=== PATIENT | male | born 1970 | race Caucasian/White ===

== ENCOUNTER 2016-12-09 09:45 | Emergency (ER) | payer OTHER ==
[~2016-12-09] VITALS: Ht 182.9 cm; Wt 106.0 kg
[~2016-12-09 09:45] MED LIST: HYDR-4079 PO; MULT-506 PO; SYMIN160 INH
[2016-12-09 09:49] VITALS: Ht 182.9 cm; Wt 106.0 kg
[2016-12-09] MEDS ORDERED: HYDROCODONE/ACETAMOPHEN 5/325MG TAB PO STA (10:13)
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
--- NOTE | 2016-12-09 12:34 | DIAGNOSTIC IMAGING REPORT ---
RIGHT RIBS UNILATERAL WITH PA CHEST CLINICAL HISTORY: R rib pain Right COMPARISON STUDY: Chest CT 07/18/2011. FINDINGS: Old, healed right first and second rib fractures. No acute rib fractures. No pneumothorax. No pleural effusions. The heart is normal in size. IMPRESSION: No acute rib fractures. No pneumothorax. Electronically signed by: Noah Murillo M.D. 12/09/2016 12:33 PM Dictated Date/Time: 12/09/2016 12:30 PM
[2016-12-09 12:44] VITALS: TEMP 36.7
[2016-12-09 13:40] VITALS: BP 142/91; PULSE 53; O2SAT 99
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
== END 2016-12-09 13:40 | disposition home or self-care (01) ==
LOC: C.EDB 09:47
DX: S16.1XXA Strain of muscle, fascia and tendon at neck level, initial encounter (principal); G44.209 Tension-type headache, unspecified, not intractable; T14.8 Other injury of unspecified body region; V43.52XA Car driver injured in collision with other type car in traffic accident, initial encounter; Y92.410 Unspecified street and highway as the place of occurrence of the external cause; Z87.891 Personal history of nicotine dependence; Z79.899 Other long term (current) drug therapy

== ENCOUNTER 2024-11-20 20:55 | Inpatient (IN) ==
[2024-11-20] MEDS ORDERED: MoRPHine SULFATE 4 MG/ML 1 ML CARP\\VIAL IV PRN (21:28)
[2024-11-20 21:36] LABS: Appearance Urine Clear (Clear); Bacteria Urine Automated None Seen (None Seen); Cast Urine Automated 0-2 /lpf (0-2); Epithelial Cell Urine Auto 0-2 /hpf (0-2); Glucose Urine UA Negative (Negative); Hematocrit (blood only) 44.2 % (42.0-52.0); Hemoglobin 16.0 g/dl (14.0-18.0); Immature Granulocytes # (auto) 0.05 K/uL (0.01-0.20); Immature Granulocytes % (auto) 0.3 %; Mean Corpuscular Hemoglobin 32.9 pg (25.0-34.0); Mean Corpuscular Volume 90.9 fL (80.0-100.0); Platelet Count 167 K/uL (130-400); RDW Standard Deviation 41.1 fL (36.4-46.3); Red Blood Count 4.86 M/uL (4.70-6.10); WBC Urine Automated 0-5 /hpf (0-5); White Blood Count 16.73 K/ul (4.8-10.8)
[2024-11-20] MEDS: KETOROLAC 30 MG/ML VIAL IV STA (21:40)
[2024-11-20] MEDS: SODIUM CHLORIDE 0.9% 1,000 ML IV ONE (21:40)
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
[2024-11-20] MEDS: ONDANSETRON INJ 2 MG/ML 2 ML VIAL IV STA (21:42)
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
[2024-11-20] MEDS ORDERED: LORazepam 0.5 MG TAB PO PRN (21:48)
[2024-11-20] MEDS ORDERED: PROMETHAZINE 12.5 MG/50.5 ML BAG IV PRN (21:48)
[2024-11-20 21:52] LABS: Alanine Aminotransferase 24.0 U/L (7-52); Albumin Globulin Ratio 1.6 (0.9-2); Alkaline Phosphatase 57.0 U/L (34-104); Anion Gap 9.0 (3-11); Bilirubin,Total 0.7 mg/dl (0.2-1.0); Blood Urea Nitrogen 21.0 mg/dl (6-23); Calcium 9.5 mg/dl (8.6-10.3); Carbon Dioxide 24.0 mmol/L (21-32); Chloride 107.0 mmol/L (98-107); Creatinine Clr Calc Pharmacy 84.0 ml/min; Globulin 2.7 gm/dl (2.5-4.0); Glucose 115.0 mg/dl (70-99(Fasting)); Potassium 4.1 mmol/L (3.5-5.1); Sodium 140.0 mmol/L (136-145); Total Protein 7.1 gm/dl (6.0-8.3)
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
[2024-11-20] MEDS: MoRPHine SULFATE 4 MG/ML 1 ML CARP\\VIAL IV PRN (22:29)
[2024-11-20] MEDS: LACTATED RINGER'S 1,000 ML IV ONE (23:13)
[2024-11-20] MEDS ORDERED: POLYETHYLENE (MIRALAX) 17 GM PACK PO PRN (23:17)
[2024-11-20] MEDS ORDERED: RIZATRIPTAN BENZOATE 10 MG TAB PO PRN (23:48)
[2024-11-20] MEDS: DOCUSATE SODIUM/SENNA 50/8.6MG TAB PO SCH (23:56)
[2024-11-21 04:44] LABS: Hematocrit (blood only) 40.2 % (42.0-52.0); Hemoglobin 13.8 g/dl (14.0-18.0); Immature Granulocytes # (auto) 0.05 K/uL (0.01-0.20); Immature Granulocytes % (auto) 0.4 %; Mean Corpuscular Hemoglobin 32.0 pg (25.0-34.0); Mean Corpuscular Volume 93.3 fL (80.0-100.0); Platelet Count 137 K/uL (130-400); RDW Standard Deviation 43.3 fL (36.4-46.3); Red Blood Count 4.31 M/uL (4.70-6.10); White Blood Count 12.89 K/ul (4.8-10.8)
[2024-11-21 04:59] LABS: Anion Gap 4.0 (3-11); Blood Urea Nitrogen 25.0 mg/dl (6-23); Calcium 8.8 mg/dl (8.6-10.3); Carbon Dioxide 27.0 mmol/L (21-32); Chloride 109.0 mmol/L (98-107); Creatinine Clr Calc Pharmacy 66.5 ml/min; Glucose 109.0 mg/dl (70-99(Fasting)); Potassium 4.4 mmol/L (3.5-5.1); Sodium 140.0 mmol/L (136-145)
[2024-11-21] MEDS: ACETAMINOPHEN 325 MG TAB PO PRN (05:38)
[2024-11-21] MEDS ORDERED: HYDROmorphone INJ 0.5 MG/0.5 ML SYR IV PRN (05:42)
[2024-11-21] MEDS: HYDROmorphone INJ 0.5 MG/0.5 ML SYR IV STA (05:43)
[2024-11-21 07:39] LABS: Hemoglobin A1C 5.8 % (4.5-5.6)
[2024-11-21] MEDS ORDERED: LACTATED RINGER'S 1,000 ML IV SCH (08:00)
[2024-11-21] MEDS: FLUTICASONE/VILANTEROL 200/25MCG 14 PUFFS/INHALER INH SCH (08:17)
[2024-11-21] MEDS: LORATADINE 10 MG TAB PO SCH (08:17)
[2024-11-21] MEDS: TAMSULOSIN HCL 0.4 MG CAP PO SCH (08:18)
[2024-11-21] MEDS: MULTIVITAMIN TAB PO SCH (08:18)
--- NOTE | 2024-11-21 09:14 | Urology Progress Note ---
Date of Service November 21, 2024 Assessment & Plan (1) Calculus of right ureter: Plan: Follow-up of right ureteral stone Patient afebrile, vital signs stable Labs reviewedcreatinine 1.64 today (previously 1.3), WBC 12.89 Urinalysis was not suspicious for infection Subjectively continues to have pain Discussed options for stone management including cystoscopy and right ureteral stent placement given ongoing pain versus continued trial of passage with medical expulsive therapy and pain management After discussion, he elects right ureteral stent placement Ureteral stents discussed in detail Proceed to OR for cystoscopy, retrograde pyelogram and right ureteral stent placement Keep n.p.o. for procedure Risks and benefits of procedure to be reviewed with patient by Dr. Kramer Will treat with preoperative antibiotic Continue supportive care and medical management per hospital medicine service Admission and Anticipated Discharge Date Admission Date: November 20, 2024 Supervising Physician Co-Signing Physician Notes Discussed patient with JUJU. Agree with plan. Plan to go to OR for cystoscopy and right stent placement Subjective Patient seen and examined in emergency department. No acute issues overnight. Continues to have right flank pain. Denies stone passage. Voiding spontaneously, no dysuria or hematuria.. No fever or chills. He is NPO. Review of Systems Constitutional: as per Subjective / HPI Genitourinary: + as per Subjective / HPI Physical Exam Constitutional: well developed and well nourished; no acute distress Respiratory: normal respiratory effort; no respiratory distress and no labored breathing Gastrointestinal (Abdomen): Inspection/Auscultation: abdomen normal to inspection Musculoskeletal: Head/Neck/Chest: normocephalic Neurologic: moves all extremities and awake Psychiatric: Orientation: alert and oriented x 3 Results & Data Vital Signs (Past 12 Hours) Vital Signs Pulse Pulse Resp BP Pulse Ox O2 Del Method 11/21/24 08:15 63 21 122/83 96 Room Air 11/20/24 23:11 73 16 136/89 95 Room Air 11/20/24 22:57 73 11/20/24 22:30 88 14 134/87 96 Room Air 11/20/24 21:57 82 16 11/20/24 21:50 85 PG Care Time/CCT Total # of Minutes Spent Total Time Spent with Patient: Total time spent is greater than 50% in coordination of care (as documented) at patient's floor/unit and/or counseling patient: Coding Level of Care Code 28399 SUB INP/OBS CARE MIN Diagnoses Calculus of right ureter N20.1
[2024-11-21] MEDS: LACTATED RINGER'S 1,000 ML IV SCH (10:49)
[2024-11-21] MEDS ORDERED: PROPOFOL IV EMULSION 10 MG/ML 20 ML VIAL IV ONE ×2 (10:53→11:38)
[2024-11-21] MEDS ORDERED: DEXAMETHASONE SOD INJ 4 MG/ML VIAL ONE ×2 (10:53→10:57)
[2024-11-21] MEDS ORDERED: LIDOCAINE 2% 2 ML VIAL/AMP(20MG/ML) INFIL ONE (10:53)
[2024-11-21] MEDS ORDERED: ONDANSETRON INJ 2 MG/ML 2 ML VIAL ONE (10:53)
[2024-11-21] MEDS ORDERED: MIDAZOLAM HCL 1 MG/ML 2ML VIAL ONE (10:53)
[2024-11-21] MEDS ORDERED: ONDANSETRON INJ 2 MG/ML 2 ML VIAL IV PRN (11:09)
[2024-11-21] MEDS ORDERED: ATROPINE SULFATE 0.1 MG/ML 10ML SYR IV PRN (11:09)
[2024-11-21] MEDS ORDERED: HYDROmorphone INJ 1 MG/ML SYRINGE IV PRN (11:09)
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
--- NOTE | 2024-11-21 11:43 | Operative Report ---
PG Post Operative Report Pre & Post Diagnosis Right ureteral calculus Operation Date: 11/21/24 10:15 <No data on this case meets the specified criteria> Right ureteral calculus I identified the patient and participated in the time-out.: Yes Procedure Cystoscopy, right retrograde With radiograph interpretation, right ureteral stent placement Operation Date: 11/21/24 10:15 <No data on this case meets the specified criteria> Surgeon Talha Kramer MD Social Welfare Clerk None Estimated Blood Loss 0 Findings See Below Mild to moderate right hydronephrosis. Stent in appropriate position Specimens None Drains 6 Swazi by 26 cm right ureteral stent Anesthesia Type MAC Complications none Indications 54-year-old male with a right proximal obstructing ureteral calculus Description of Procedure After informed consent was obtained, the patient was transported operative suite. MAC anesthesia was induced. The patient was placed in dorsolithotomy position prepped and draped in a sterile fashion. They received preoperative Ancef for antibiotic prophylaxis. An appropriate surgical timeout was performed. A 22 Swazi rigid scope was inserted per urethra into the bladder. Espinoza cystoscopy revealed no stones or lesions. I turned my attention the right ureteral orifice and intubated this with a 5 Swazi open-ended catheter. A right retrograde pyelogram was shot which showed mild to moderate right hydronephrosis. A sensor wire was advanced into the kidney and confirmed fluoroscopically. A 6 Swazi by 26 cm right ureteral stent was deployed with a good proximal coil in the renal pelvis and a good distal coil noted in the bladder, confirmed fluoroscopically and under direct visualization, respectively. The bladder was emptied and the scope was removed. This concluded the end of the case. All counts were correct at the end of the case. I was present, scrubbed, and actively participated for the entirety of the procedure. I attest to the content of the Intraoperative Record and any orders documented therein. Any exceptions are noted below.
[2024-11-21] MEDS ORDERED: DIATRIZOATE MEGLUMINE 30% 100ML VIAL INSTIL PRN (11:47)
--- NOTE | 2024-11-21 11:53 | Fluoroscopy Report ---
FL retrograde includes kub CLINICAL HISTORY: RT SIDE STENT PLACEMENT COMPARISON STUDY: CT abdomen and pelvis 11/19/2024 FLUOROSCOPY TIME: 5.6 seconds FLUOROSCOPY IMAGES: 3 EXPOSURE DOSE: 2.95 mGy FINDINGS: Mild persistent hydronephrosis. Satisfactory positioning of the right ureteral stent proxim ally, distal portion is not imaged. IMPRESSION: Fluoroscopic assistance as above. ACT 112: Negative or not required by law. Electronically signed by: Magno Soliman M.D. 11/21/2024 11:51 AM
--- NOTE | 2024-11-21 12:22 | Anesthesiology Progress Note ---
Date of Service November 21, 2024 Anesthesia Post Procedure Vital Signs Vital Signs: Temp Pulse Pulse Pulse Resp BP BP 11/21/24 12:00 60 15 94/68 L 11/21/24 11:52 36.0 C L 72 16 100/65 11/21/24 10:50 37 C 62 20 142/87 H 11/21/24 08:15 63 21 122/83 11/20/24 23:11 73 16 136/89 11/20/24 22:57 73 11/20/24 22:30 88 14 134/87 11/20/24 21:57 82 16 11/20/24 21:50 85 11/20/24 20:58 37 C 88 18 153/98 H Pulse Ox O2 Del Method O2 Flow Rate 11/21/24 12:00 99 Oxymask 6 11/21/24 11:52 98 Oxymask 6 11/21/24 10:50 97 Room Air 11/21/24 08:15 96 Room Air 11/20/24 23:11 95 Room Air 11/20/24 22:57 11/20/24 22:30 96 Room Air 11/20/24 21:57 11/20/24 21:50 11/20/24 20:58 99 Room Air Pain Intensity Right Flank: Pain Intensity: 4 Transfer of Care Handoff Completed per policy Notes Mental Status: alert / awake / arousable and participated in evaluation Patient Amnestic to Procedure: Yes Nausea / Vomiting: adequately controlled Pain: adequately controlled Airway Patency, RR, SpO2: stable & adequate BP & HR: stable & adequate Hydration State: stable & adequate Anesthetic Complications: no major complications apparent and Pt Satisfied with anesthetic care
[2024-11-21 14:29] VITALS: TEMP 98.1
--- NOTE | 2024-11-21 14:34 | Hospitalist Progress Note ---
Date of Service November 21, 2024 Assessment & Plan (1) Calculus of right ureter: Plan: Assessment and plan below following discussion of case with ED provider and reviewing patient history/pertinent normal/abnormal diagnostic test results. Obstructive uropathy secondary to kidney stone Failed outpatient treatment No sepsis for now Status post cystoscopy, right retrograde pyelogram and right ureteral stent placement on 11/21/2024 Did very well following the procedure and remained asymptomatic in the PACU Urologist cleared that the patient can be discharged even from the PACU Discussed with the patient in detail about abnormal kidney function and he could be unstable with following surgery He has been adamant that he wants to go home this afternoon and can come back anytime if needed He was advised to take extreme precaution to avoid fall, finish the course of antibiotic and was discharged home from PACU Constipation symptoms, narcotic medication possibly contributory bronchial asthma, stable pituitary neoplasm, likely benign as per outpatient records. Stable measurement from outpatient brain MRI from 2021. hx migraine, well-controlled on current regimen Hyperglycemia likely prediabetes, hemoglobin A1c of 5.7 from 2019 ongoing tobacco abuse DVT prophylaxis. SCDs Full code Text document was generated using [employer] voice recognition software. It may contain grammatical or spelling errors. Kindly contact undersigned for clarification of any documentation item in question. Admission and Anticipated Discharge Date Admission Date: November 20, 2024 Subjective 11/21/2024 The patient was seen and examined in PACU He is a status post cystoscopy, right retrograde pyelogram and right ureteral stent placement He has been feeling fine following the procedure and denies any significant symptoms and does not have any pain or hematuria He is adamant that he wants to go home today and even from that PACU And his discharge was okay at by the urologist Risk and benefit about discharge from the PACU was discussed in detail with the patient Review of Systems Review of Systems: All systems reviewed and are unremarkable except as noted below Physical Exam Physical Exam: Lying in bed without any acute discomfort Constitutional: well developed, well nourished and + obese; not ill appearing Eyes: PERRL, conjunctivae normal, anicteric sclerae ENMT: external ear and nose normal, oropharynx normal Neck: trachea midline, no thyromegaly Respiratory: no respiratory distress Auscultation: lungs clear to auscultation bilaterally Cardiovascular: Rate/Rhythm: regular rate and regular rhythm; not tachycardic Heart Sounds: normal S1 and normal S2; no murmur Extremities: no edema Gastrointestinal (Abdomen): Inspection/Auscultation: normal bowel sounds; abdomen not distended Percussion/Palpation: abdomen soft; abdomen nontender Musculoskeletal: No acute arthritis involving any of the joint Neurologic: normal touch/pain/proprioception and moves all extremities; no focal motor deficits Psychiatric: A+Ox3, euthymic affect Lymphatic: no cervical or axillary lymphadenopathy Results & Data Results & Data Vital Signs (Past 12 Hours) Vital Signs Temp Pulse Pulse Resp BP Pulse Ox O2 Del Method 11/21/24 14:15 60 18 101/70 96 Room Air 11/21/24 14:00 65 19 106/77 96 Room Air 11/21/24 13:30 62 18 106/77 96 Room Air 11/21/24 13:15 60 17 108/78 97 Oxymask 11/21/24 13:00 66 15 113/73 96 Oxymask 11/21/24 12:45 78 20 111/83 95 Oxymask 11/21/24 12:30 60 13 103/67 96 Oxymask 11/21/24 12:20 36.6 C 76 15 112/76 99 Oxymask 11/21/24 12:10 64 14 105/69 99 Oxymask 11/21/24 12:00 60 15 94/68 L 99 Oxymask 11/21/24 11:52 36.0 C L 72 16 100/65 98 Oxymask 11/21/24 10:50 37 C 62 20 142/87 H 97 Room Air 11/21/24 08:15 63 21 122/83 96 Room Air O2 Flow Rate 11/21/24 14:15 0 11/21/24 14:00 0 11/21/24 13:30 0 11/21/24 13:15 0 11/21/24 13:00 0 11/21/24 12:45 0 11/21/24 12:30 0 11/21/24 12:20 0 11/21/24 12:10 4 11/21/24 12:00 6 11/21/24 11:52 6 11/21/24 10:50 11/21/24 08:15 Laboratory Results Short CBC 11/20/24 11/21/24 Range/Units 21:17 04:16 WBC 16.73 H 12.89 H (4.8-10.8) K/ul Hgb 16.0 13.8 L (14.0-18.0) g/dl Hct 44.2 40.2 L (42.0-52.0) % Plt Count 167 137 (130-400) K/uL BMP 11/20/24 11/21/24 21:17 04:16 Sodium 140 140 Potassium 4.1 4.4 Chloride 107 109 H Carbon Dioxide 24 27 BUN 21 25 H Creatinine 1.30 1.64 H D Glucose 115 H 109 H Calcium 9.5 8.8 Liver Function 11/20/24 Range/Units 21:17 Total Bilirubin 0.7 (0.2-1.0) mg/dl AST 22 (13-39) U/L ALT 24 (7-52) U/L Alkaline Phosphatase 57 (34-104) U/L Albumin 4.4 (3.4-5.0) gm/dl Urine 11/20/24 Range/Units 21:17 Urine Color Yellow Urine Appearance Clear (Clear) Urine pH 5.5 (4.5-7.5) Ur Specific [place] 1.020 (1.000-1.030) Urine Protein Negative (Negative) Urine Glucose (UA) Negative (Negative) Medications Administered Current Inpatient Medications Acetaminophen (Acetaminophen 325 Mg Tab) 650 mg PO QID PRN PRN Reason: pain/fever Stop: 12/20/24 21:47 Last Admin: 11/21/24 05:38 Dose: 650 mg Atropine Sulfate (Atropine Sulfate 0.1 Mg/Ml 10ml Syr) 0.5 mg IV Q1M PRN PRN Reason: PACU Use-HR<40 &/or Bradycardi Stop: 11/21/24 19:09 Diatrizoate Meglumine (Diatrizoate Meglumine 30% 100ml Vial) 10 ml INSTIL UD PRN PRN Reason: pyelogram Stop: 11/25/24 11:46 Ephedrine Sulfate (Ephedrine Sulfate 50 Mg/Ml Amp) 5 mg IV Q5M PRN PRN Reason: PACU Use Only-SBP<90 mmHg Stop: 11/21/24 19:09 Fentanyl Citrate (Fentanyl Citrate Pf 100 Mcg/2 Ml Vial) 50 mcg IV Q5M PRN PRN Reason: PACU Use Only-Pain Stop: 11/21/24 19:09 Fluticasone/Vilanterol (Fluticasone/Vilanterol 200/25mcg 14 Puffs/Inhaler) 1 puffs INH QAM ARTUR Stop: 12/21/24 08:59 Last Admin: 11/21/24 08:17 Dose: 1 puffs Hydromorphone HCl (Hydromorphone Inj 0.5 Mg/0.5 Ml Syr) 1 mg IV Q4H PRN PRN Reason: Pain Stop: 12/05/24 05:41 Hydromorphone HCl (Hydromorphone Inj 1 Mg/Ml Syringe) 0.25 mg IV Q5M PRN PRN Reason: PACU Use Only-Pain Stop: 11/21/24 19:09 Promethazine HCl (Phenergan) 12.5 mg in 50.5 mls @ 202 mls/hr IV Q6H PRN PRN Reason: Nausea And Vomiting Stop: 12/20/24 21:47 Lactated Ringer's (Lr) 1,000 mls @ 100 mls/hr IV .Q10H ARTUR Stop: 11/22/24 07:59 Lactated Ringer's (Lr) 1,000 mls @ 15 mls/hr IV .Q24H ARTUR Stop: 11/24/24 10:29 Last Infusion: 11/21/24 11:22 Dose: Infused Loratadine (Loratadine 10 Mg Tab) 10 mg PO QAM ARTUR Stop: 12/21/24 08:59 Last Admin: 11/21/24 08:17 Dose: 10 mg Lorazepam (Lorazepam 0.5 Mg Tab) 0.5 mg PO TID PRN PRN Reason: Anxiety Stop: 12/20/24 21:47 Multivitamins (Multivitamin Tab) 1 tab PO QAM ARTUR Stop: 12/21/24 08:59 Last Admin: 11/21/24 08:18 Dose: 1 tab Ondansetron HCl (Ondansetron Inj 2 Mg/Ml 2 Ml Vial) 4 mg IV ONCE PRN PRN Reason: PACU Use Only-Nausea/Vomiting Stop: 11/21/24 19:09 Oxycodone HCl (Oxycodone Hcl Ir 5 Mg Tab (Immediate Release)) 5 - 10 mg PO QID PRN PRN Reason: Pain Stop: 12/04/24 21:47 Last Admin: 11/21/24 05:38 Dose: 10 mg Polyethylene Glycol (Polyethylene (Miralax) 17 Gm Pack) 17 gm PO DAILY PRN PRN Reason: Constipation Stop: 12/20/24 23:16 Rizatriptan Benzoate (Rizatriptan Benzoate 10 Mg Tab) 10 mg PO Q2H PRN PRN Reason: Migraine Headache Stop: 12/20/24 23:47 Senna/Docusate Sodium (Docusate Sodium/Senna 50/8.6mg Tab) 1 tab PO QAM ARTUR Stop: 12/20/24 23:19 Last Admin: 11/20/24 23:56 Dose: 1 tab Tamsulosin HCl (Tamsulosin Hcl 0.4 Mg Cap) 0.4 mg PO DAILY [facility] Stop: 12/21/24 08:59 Last Admin: 11/21/24 08:18 Dose: 0.4 mg
[2024-11-21 15:37] VITALS: BP 125/81; PULSE 70; RESP 20; O2SAT 97
--- NOTE | 2024-11-21 16:55 | Discharge Summary ---
Date of Service November 21, 2024 Admission HPI Per Admitting Provider History obtained from patient and records. Medical history significant for hyperlipidemia, bronchial asthma, possible ANGELITO, pituitary neoplasm, migraine, LUTS, urolithiasis, mood disorder, ongoing tobacco abuse. Patient noted achy right flank pain symptoms yesterday associated with emesis. No chest pain, no SOB, no fever, no chills. No gross hematuria. No prior history of kidney stones. Patient seen at ER last night. CT abdomen pelvis showed Mild right hydroureteronephrosis with 5 mm obstructing calculus in the mid right ureter. Patient told provider that he preferred to go home due to plans for 's birthday celebration today at a [place] restaurant. Patient discharged on oxycodone, Zofran, Flomax medications. Instructed to return to ER with fever and intractable symptoms. Right flank pain noted to escalate tonight upon return home from [place]. Denies fever, chills, hematuria. No bowel movement today which is unusual for him. Medical History as above Surgical History : Carpal tunnel surgery, ex lap, foot/toe surgery, ulnar nerve revision Family History : COPD, pancreatic cancer; no kidney stones Personal/Social history : 1/2 pack daily, occasional EtOH intake, [employer] employee . Admission Exam Per Admitting Provider Physical Exam: GENERAL: Slightly uncomfortable, obese, pleasant, no respiratory distress SKIN: Normal color, warm HEENT: [place] palpebral conjunctivae, no ptosis, dry buccal mucosa NECK : Supple, no tenderness CHEST : Decreased breath sounds, no tenderness HEART : RRR, no obvious murmurs ABDOMEN: Some distention, right flank tenderness EXTREMITIES : No LE swelling/tenderness, palpable pulses, no other conspicuous deformities noted NEUROLOGIC : Coherent, no facial asymmetry, no other gross focality Principal Diagnosis Obstructive uropathy secondary to kidney stone, status post cystoscopy with right ureteric stent placement Discharge Exam Lying in bed without any acute discomfort Constitutional well developed, well nourished and + obese; not ill appearing Eyes PERRL, conjunctivae normal, anicteric sclerae ENMT external ear and nose normal, oropharynx normal Neck trachea midline, no thyromegaly Respiratory no respiratory distress Auscultation: lungs clear to auscultation bilaterally Cardiovascular Rate/Rhythm: regular rate and regular rhythm; not tachycardic Heart Sounds: normal S1 and normal S2; no murmur Extremities: no edema Gastrointestinal (Abdomen) Inspection/Auscultation: normal bowel sounds; abdomen not distended Percussion/Palpation: abdomen soft; abdomen nontender Neurologic normal touch/pain/proprioception and moves all extremities; no focal motor deficits Psychiatric A+Ox3, euthymic affect Lymphatic no cervical or axillary lymphadenopathy Discharge Data Allergies Allergy/AdvReac Type Severity Reaction Status Date / Time No Known Allergies Allergy Unknown Verified 11/21/24 11:00 Consultations 11/20/24 21:37 ED Decision to Admit Stat 11/20/24 22:26 Consult Urology Routine Procedures Performed Operation Date: 11/21/24 10:15 Actual Procedures p Cystoscopy,Right Retrograde Pyelogram, and Right Ureteral Stent Placement(Right) - Talha Kramer MD Ordered Studies 11/21/24 10:00 FL retrograde includes kub Routine Hospital Course (1) Calculus of right ureter: Assessment and plan below following discussion of case with ED provider and reviewing patient history/pertinent normal/abnormal diagnostic test results. Obstructive uropathy secondary to kidney stone Failed outpatient treatment No sepsis for now Status post cystoscopy, right retrograde pyelogram and right ureteral stent placement on 11/21/2024 Did very well following the procedure and remained asymptomatic in the PACU Urologist cleared that the patient can be discharged even from the PACU Discussed with the patient in detail about abnormal kidney function and he could be unstable with following surgery He has been adamant that he wants to go home this afternoon and can come back anytime if needed He was advised to take extreme precaution to avoid fall, finish the course of antibiotic and was discharged home from PACU Constipation symptoms, narcotic medication possibly contributory bronchial asthma, stable pituitary neoplasm, likely benign as per outpatient records. Stable measurement from outpatient brain MRI from 2021. hx migraine, well-controlled on current regimen Hyperglycemia likely prediabetes, hemoglobin A1c of 5.7 from 2019 ongoing tobacco abuse DVT prophylaxis. SCDs Full code Text document was generated using [employer] voice recognition software. It may contain grammatical or spelling errors. Kindly contact undersigned for clarification of any documentation item in question. Total Time Total Time Spent Total Time Spent (In Minutes): 40 minutes Discharge Plan Discharge Items Patient Disposition: Home - Self-Care Reason For Visit: OBS UROPATHY Discharge Diagnosis: Obstructive uropathy secondary to kidney stone, status post cystoscopy with right ureteric stent placement Condition on Discharge: Fair Activity: Resume your previous activity Non-emergency contact: Primary Care Provider Call non-emergency contact if: you have any medication questions and your symptoms worsen Follow-up/Referrals: Gunnar Justice MD [Primary Care Provider] - 11/28/24 10:20 am Diet: Regular Diet Comment: Drink more fluid Addtl Attending Provider Instructions: Please take precautions to avoid falls Finish the course of antibiotic Take your medications as advised Try to drink more fluid Please keep your appointment with your healthcare providers Take Tylenol and ibuprofen as needed for pain. Oxycodone for breakthrough pa in. Continue taking Flomax as this can help with stent discomfort. If you are not having bother from the stent, you do not need to take any medications. MiraLAX [id number] as needed for constipation. - Resume your previous diet. It is normal to have blood in his urine while the stent is in place. The more activity performed, the bloodier your urine will be. This is okay as long as you are able to urinate. You will be called regarding a follow-up appointment to determine stone treatment. Call the office at [phone] earlier with fevers or uncontrolled pain. Pending Studies at Discharge: No Stand-Alone Forms: My [employer], Work/School Release, Smoking Cessation Medications and DC Order Prescriptions: New cephalexin 500 mg capsule 500 mg PO Q8H 5 Days Qty: 15 0RF Continued rizatriptan 10 mg tablet,disintegrating 10 mg PO Q2H PRN (Reason: Migraine Headache) magnesium oxide 400 mg magnesium tablet 400 mg PO DAILY riboflavin (vitamin B2) 400 mg tablet 400 mg PO DAILY hydrocodone-acetaminophen 10-325 mg tablet 1 tab PO BID multivitamin [Multiple Vitamins] Tablet 1 tab PO QAM albuterol sulfate 90 mcg/actuation HFA aerosol inhaler 1 - 2 puff INHALATION UD PRN (Reason: Shortness Of Breath) loratadine 10 mg tablet 10 mg PO QAM fluticasone furoate-vilanterol [Breo Ellipta] 200-25 mcg/dose blister with device 1 inh INHALATION QAM tamsulosin [Flomax] 0.4 mg capsule 0.4 mg PO DAILY Qty: 7 0RF ondansetron 4 mg tablet,disintegrating 4 mg PO Q6H PRN (Reason: nausea and vomiting) Qty: 20 0RF oxycodone 5 mg tablet 5 mg PO Q6H Qty: 12 0RF Rx Instructions: Initial Treatment Discharge Orders: Discharge Order (Routine); Ordered 11/21/24 Ordered By: Abimael Roper/Other Patient Handouts: DVT Post Op Prevention Admission Data Admit Date/Time: 11/20/24 21:48 Attending Provider: Abimael Mccullough Admit Provider: Primitivo Leone Primary Care Provider: Gunnar Justice Other Providers: Juice Jane; Pema Grace; John Kearns; Shima Rivera; Jerry Don; Ghazal Martinez; Micah Wallace; Monserrat El; Tony Holland; Talha Kramer; Primitivo Leone Other Interventions: Discharge Summary Assessment (RN) Last Done: 11/21/24 15:10
== END 2024-11-21 15:16 | disposition home or self-care (01) | DRG 661 ==
LOC: ED 20:55 → EDINP 21:48